=== PATIENT | female | born 1965 | race Caucasian/White ===

== ENCOUNTER 2020-09-18 19:26 | Emergency (ER) | payer OTHER ==
[~2020-09-18] VITALS: Ht 162.6 cm; Wt 95.5 kg
[~2020-09-18 19:26] MED LIST: AMLO2.5T4 PO; HCTZ25T PO; HYDR-4383 PO; IBUP200C5 PO; LEVO25TA50 PO; LEVO50TA67 PO; NOR5T PO; SYN0.075T PO
[2020-09-18] MEDS ORDERED: acetaminophen 325mg tablet PO ONE (19:45)
[2020-09-18 20:32] LABS: BASOPHILS % (AUTO) 0.3 % (0-1); EOSINOPHILS % (AUTO) 0.1 % (0-6); HEMATOCRIT 44.3 % (35.0-45.0); HEMOGLOBIN 14.8 g/dl (12.0-16.0); LYMPHOCYTES # (AUTO) 1.2 X10'3 (1.1-4.8); LYMPHOCYTES % (AUTO) 15.4 % (21-51); MEAN CORPUSCULAR HEMOGLOBIN 29.1 PG (27.0-31.0); MEAN CORPUSCULAR HGB CONC 33.3 g/dL (33.0-36.5); MEAN CORPUSCULAR VOLUME 87.2 FL (78-98); MEAN PLATELET VOLUME 8.1 FL (7.4-10.4); MONOCYTES # (AUTO) 0.6 X10'3 (0-0.9); MONOCYTES % (AUTO) 7.8 % (2-12); NEUTROPHILS # (AUTO) 5.9 X10'3 (1.8-7.7); NEUTROPHILS % (AUTO) 76.4 % (42-75); PLATELET COUNT 187 X10'3 (140-440); RED BLOOD COUNT 5.08 X10'6 (4.20-5.60); RED CELL DISTRIBUTION WIDTH 14.6 % (11.5-14.5); WHITE BLOOD COUNT 7.7 X10'3 (4.5-11.0)
[2020-09-18 20:45] LABS: ALANINE AMINOTRANSFERASE 49 U/L (12-78); ALBUMIN 3.8 G/DL (3.4-5.0); ALBUMIN/GLOBULIN RATIO 0.8 (1.1-1.5); ALKALINE PHOSPHATASE 133 IU/L (46-116); ANION GAP 7 (8-16); ASPARTATE AMINO TRANSFERASE 32 U/L (10-37); BILIRUBIN,TOTAL 0.6 MG/DL (0.1-1.0); BLOOD UREA NITROGEN 13 MG/DL (7-18); BUN/CREATININE RATIO 18.3 (6.6-38.0); CALCIUM 8.8 MG/DL (8.5-10.1); CHLORIDE 98 MMOL/L (99-107); CREATININE 0.71 MG/DL (0.40-0.90); GLUCOSE 112 MG/DL (70-104); POTASSIUM 4.4 MMOL/L (3.5-5.1); SODIUM 135 MMOL/L (135-145); TOTAL CARBON DIOXIDE 29.8 MMOL/L (24-32); TOTAL PROTEIN 8.4 G/DL (6.4-8.2); eGFR 86 ML/MIN
--- NOTE | 2020-09-18 22:38 | NUR ---
MD MADE AWARE OF BP, PLANNING ON ORDERING SOMETHING.
[2020-09-18] MEDS ORDERED: amLODIPine 5mg tablet PO ONE (23:00)
[2020-09-18] MEDS ORDERED: azithromycin 250mg tablet PO ONE (23:00)
[2020-09-18] MEDS ORDERED: HYDROchlorothiazide 25mg tablet PO ONE (23:00)
[2020-09-18] MEDS ORDERED: hyDRALAzine 10mg tablet PO SCH (23:00)
[2020-09-18] MEDS ORDERED: dexamethasone 4mg tablet PO ONE (23:00)
[2020-09-18] MEDS ORDERED: AMLO10TA48 PO (23:13)
[2020-09-18] MEDS ORDERED: LEVO75TA PO (23:13)
[2020-09-18] MEDS ORDERED: HYDR25TA4 PO (23:13)
[2020-09-18] MEDS ORDERED: AZIT-63 PO (23:13)
[2020-09-18 23:32] VITALS: BP 149/94
== END 2020-09-19 00:12 | disposition home or self-care (01) ==
LOC: ER 19:27
DX: U07.1 COVID-19 (principal); J18.9 Pneumonia, unspecified organism; R05 Cough; R09.89 Other specified symptoms and signs involving the circulatory and respiratory systems; R50.9 Fever, unspecified; I10 Essential (primary) hypertension; E03.9 Hypothyroidism, unspecified; F32.9 Major depressive disorder, single episode, unspecified; Z72.89 Other problems related to lifestyle; Z79.2 Long term (current) use of antibiotics; Z79.899 Other long term (current) drug therapy
CPT/HCPCS: 36415; 71045; 80053; 83605; 84145; 85025; 87040; 87635; 99284; 99285

== ENCOUNTER 2024-04-16 03:28 | Emergency (ER) | payer MEDICAID, OTHER ==
[~2024-04-16] VITALS: Ht 162.6 cm; Wt 113.6 kg
[~2024-04-16 03:28] MED LIST changes: +AMLO-888 PO; +HYDR25TA4 PO; -SYN0.075T PO
[2024-04-16 03:31] VITALS: BP 199/117; PULSE 103; RESP 16; TEMP 97.7; O2SAT 92
== END 2024-04-16 04:11 | disposition left against medical advice (07) ==
LOC: ER 03:28
DX: L73.1 Pseudofolliculitis barbae (principal); Z53.21 Procedure and treatment not carried out due to patient leaving prior to being seen by health care provider

== ENCOUNTER 2025-02-04 22:39 | Emergency (ER) | payer MEDICAID ==
[~2025-02-04] VITALS: Ht 162.6 cm; Wt 113.6 kg
[2025-02-05 00:50] VITALS: TEMP 98.6
[2025-02-05] MEDS: morphine sulfate IR 15MG tablet PO ONE (02:24)
[2025-02-05 02:31] VITALS: BP 153/86; PULSE 87; RESP 18; O2SAT 96
== END 2025-02-05 02:37 | disposition home or self-care (01) ==
LOC: ER 22:40
DX: S81.802A Unspecified open wound, left lower leg, initial encounter (principal); E03.9 Hypothyroidism, unspecified; I10 Essential (primary) hypertension; Z88.1 Allergy status to other antibiotic agents; X58.XXXA Exposure to other specified factors, initial encounter; Y93.89 Activity, other specified; Y92.89 Other specified places as the place of occurrence of the external cause; Y99.8 Other external cause status
CPT/HCPCS: 99283